=== PATIENT | male | born 1965 | race Caucasian/White ===

== ENCOUNTER 2016-10-02 09:45 | Emergency (ER) | payer OTHER ==
[2016-10-02 09:48] VITALS: BP 135/94; PULSE 82; RESP 17; TEMP 98.1; O2SAT 98
[2016-10-02] MEDS ORDERED: SODIUM CHLOR 0.9% 1000 ML INJ 1,000 ML IV SCH (09:55)
[2016-10-02] MEDS ORDERED: ONDANSETRON HCL 4 MG/2 ML VIAL IVP ONE (10:00)
[2016-10-02] MEDS ORDERED: MORPHINE SULFATE 4 MG/ML INJ IV PUSH ONE (10:00)
[2016-10-02] MEDS ORDERED: metroNIDAZOLE 500 MG INJ 100 ML IV ONE (10:00)
[2016-10-02] MEDS ORDERED: CIPROFLOXACIN 400 MG PREMIX 200 ML IV ONE (10:00)
--- NOTE | 2016-10-02 10:04 | PD ---
HPI . Abdominal pain Chief Complaint: Abdominal Pain Time Seen by Provider: 09:55 Travel History International Travel<30 days: No Contact w/Intl Traveler<30days: No History of Present Illness HPI Patient presents with abdominal pain which started 3 days ago. It became much worse last night. He states that he had subjective fevers and chills last night. He denies any associated nausea, vomiting or diarrhea. He denies any associated urinary tract symptoms such as dysuria, frequency or urgency. He reports a good appetite. He has not noted any exacerbating or relieving factors. He reports a past medical history of a ruptured diverticulum. He had his state that it was treated conservatively with IV antibiotics and improved. He did not require surgery. FORMERLY [facility] Past Medical History Narrative Medical Most of his past medical history was obtained from his . He has a history of gout, hyperlipidemia, hypertension and diverticulitis. She also states that he has colonic polyps which are followed closely by colonoscopy every 3 years. Social History Tobacco Use: No Allergies-Medications (Allergen,Severity, Reaction): Coded Allergies: No Known Allergies (Unverified , 10/02/16) Reported Meds & Prescriptions Reported Meds & Active Scripts Active Reported Crestor (Rosuvastatin Calcium) 5 Mg Tab 5 Mg PO DAILY Lovastatin 40 Mg Tab 40 Mg PO DAILY Allopurinol 300 Mg Tab 300 Mg PO DAILY Review of Systems Except as stated in HPI: all other systems reviewed are Neg General / Constitutional: Positive: Fever, Chills Gastrointestinal: Positive: Abdominal Pain, No: Nausea, Vomiting, Diarrhea, Loss of Appetite Genitourinary: No: Urgency, Frequency, Dysuria Physical Exam Narrative GENERAL: Healthy-appearing man in no acute distress. SKIN: Warm and dry. HEAD: Atraumatic. Normocephalic. EYES: Pupils equal and round. Extraocular movements are intact. ENT: No nasal bleeding or discharge. Mucous membranes pink and moist. NECK: Trachea midline. Neck is supple. CARDIOVASCULAR: Regular rate and rhythm. Heart sounds are normal. RESPIRATORY: No accessory muscle use. Lungs are clear with full air movement throughout. GASTROINTESTINAL: Abdomen soft. Left sided tenderness. Nondistended. MUSCULOSKELETAL: No obvious deformities. No edema. NEUROLOGICAL: Awake and alert. No obvious cranial nerve deficits. Motor grossly within normal limits. Normal speech. PSYCHIATRIC: Appropriate mood and affect; insight and judgment normal. Data Data Last Documented VS Vital Signs Date Time Temp Pulse Resp B/P Pulse Ox O2 Delivery O2 Flow Rate FiO2 10/02/16 12:45 74 16 113/82 98 Room Air 10/02/16 09:48 98.1 Orders Complete Blood Count With Diff (10/02/16 09:55) Comprehensive Metabolic Panel (10/02/16 09:55) Lipase (10/02/16 09:55) Lactic Acid (10/02/16 09:55) Urinalysis - C+S If Indicated (10/02/16 09:55) Ct Abd/Pel W Iv Contrast(Rout) (10/02/16 09:55) Iv Access Insert/Monitor (10/02/16 09:55) Ecg Monitoring (10/02/16 09:55) Oximetry (10/02/16 09:55) Morphine Inj (Morphine Inj) (10/02/16 10:00) Ondansetron Inj (Zofran Inj) (10/02/16 10:00) Ciprofloxacin 400 Mg Premix (Cipro 400 M (10/02/16 10:00) Metronidazole 500 Mg Inj (Flagyl 500 Mg (10/02/16 10:00) Sodium Chlor 0.9% 1000 Ml Inj (Ns 1000 M (10/02/16 09:55) Sodium Chloride 0.9% Flush (Ns Flush) (10/02/16 10:00) Electrocardiogram (10/02/16 09:55) Iohexol 350 Inj (Omnipaque 350 Inj) (10/02/16 11:48) Morphine Inj (Morphine Inj) (10/02/16 12:45) Labs Laboratory Tests Test 10/02/16 10/02/16 10:17 10:37 White Blood Count 14.5 TH/MM3 Red Blood Count 4.65 MIL/MM3 Hemoglobin 14.8 GM/DL Hematocrit 42.8 % Mean Corpuscular Volume 92.2 FL Mean Corpuscular Hemoglobin 31.8 PG Mean Corpuscular Hemoglobin 34.5 % Concent Red Cell Distribution Width 13.6 % Platelet Count 175 TH/MM3 Mean Platelet Volume 7.7 FL Neutrophils (%) (Auto) 85.5 % Lymphocytes (%) (Auto) 5.1 % Monocytes (%) (Auto) 9.2 % Eosinophils (%) (Auto) 0.0 % Basophils (%) (Auto) 0.2 % Neutrophils # (Auto) 12.4 TH/MM3 Lymphocytes # (Auto) 0.7 TH/MM3 Monocytes # (Auto) 1.3 TH/MM3 Eosinophils # (Auto) 0.0 TH/MM3 Basophils # (Auto) 0.0 TH/MM3 CBC Comment DIFF FINAL Differential Comment Sodium Level 134 MEQ/L Potassium Level 4.2 MEQ/L Chloride Level 99 MEQ/L Carbon Dioxide Level 24.6 MEQ/L Anion Gap 10 MEQ/L Blood Urea Nitrogen 9 MG/DL Creatinine 1.41 MG/DL Estimat Glomerular Filtration 53 ML/MIN Rate Random Glucose 143 MG/DL Lactic Acid Level 1.9 mmol/L Calcium Level 9.3 MG/DL Total Bilirubin 1.3 MG/DL Aspartate Amino Transf 23 U/L (AST/SGOT) Alanine Aminotransferase 43 U/L (ALT/SGPT) Alkaline Phosphatase 43 U/L Total Protein 8.0 GM/DL Albumin 4.1 GM/DL Lipase 140 U/L Urine Color YELLOW Urine Turbidity CLEAR Urine pH 5.5 Urine Specific [place] 1.020 Urine Protein TRACE mg/dL Urine Glucose (UA) NEG mg/dL Urine Ketones NEG mg/dL Urine Occult Blood NEG Urine Nitrite NEG Urine Bilirubin NEG Urine Urobilinogen LESS THAN 2.0 MG/DL Urine Leukocyte Esterase NEG Urine RBC 1 /hpf Urine WBC 2 /hpf Urine Squamous Epithelial <1 /hpf Cells Urine Mucus FEW /lpf Microscopic Urinalysis Comment CULT NOT INDICATED MDM Medical Decision Making Medical Screen Exam Complete: Yes Emergency Medical Condition: Yes Medical Record Reviewed: Yes (he has no old records in our system for review.) Interpretation(s) EKG shows a sinus rhythm with a ventricular rate of 111. No ST segment elevation or depression. Differential Diagnosis Differential diagnosis of abdominal pain includes but is not limited to gastritis, pancreatitis, hepatitis, gastroenteritis, gallbladder disease, constipation, urinary retention, UTI, peptic ulcer disease, diverticulitis or appendicitis Narrative Course Patient presents for evaluation of left-sided abdominal pain. He gives a history of previous diverticulitis with rupture. CBC & BMP Diagram 10/02/16 10:17 LFTs are normal. UA is negative. Last Impressions Abdomen/Pelvis CT 10/02/16 0955 Signed Impressions: Service Date/Time: Sunday, October 02, 2016 11:43 - CONCLUSION: 1. Abnormally thickened and inflamed proximal sigmoid colon with pericolonic inflammatory change in adjacent free fluid. Imaging findings are characteristic of acute diverticulitis. Although no definite mass is seen it would be reasonable to perform followup imaging or endoscopy to ensure no underlying mass is present once the clinical symptoms resolve. 2. Nonacute findings include cholelithiasis , mild splenomegaly, and mild atherosclerotic disease. Orlin Schmidt MD The patient reports that he would much prefer to be treated as an outpatient if possible. Since he does not have a perforation or abscess, I think that this is reasonable. Diagnosis Primary Impression: Diverticulitis large intestine Qualified Code: K57.32 - Diverticulitis of large intestine without perforation or abscess without bleeding Referrals: Margaret Lawrence MD 1 week Patient Instructions: Diverticulitis (DC), General Instructions Additional Instructions: Take a stool softener such as Colace along with the pain medication to prevent constipation Med/Other Pt SpecificInfo: Prescription(s) given Scripts Oxycodone-Acetaminophen (Percocet)5-325 mg Tab1 Tab PO Q4H PRN (PAIN) #12 TAB Ref 0 Prov:Lyndsay Leos MD 10/02/16 Metronidazole (Flagyl)500 Mg [id number] Mg PO BID 7 Days Ref 0 Prov:Lyndsay Leos MD 10/02/16 Ciprofloxacin (Cipro)500 Mg [id number] Mg PO BID 10 Days Ref 0 Prov:Lyndsay Leos MD 10/02/16 Disposition: 01 DISCHARGE HOME Condition: Stable Lyndsay Leos MD Oct 02, 2016 10:04
[2016-10-02] MEDS ORDERED: LOVA40TA PO (10:14)
[2016-10-02] MEDS ORDERED: ROSU5 PO (10:14)
[2016-10-02] MEDS ORDERED: FENO160T PO (10:14)
[2016-10-02] MEDS ORDERED: ALLO300T2 PO (10:14)
[2016-10-02 10:41] LABS: AUTOMATED NEUTROPHIL # 12.4 TH/MM3 (1.8-7.7); BASOPHIL % 0.2 % (0.0-2.0); HEMATOCRIT 42.8 % (39.0-51.0); HEMO FLAGS DIFF FINAL; LYMPH % 5.1 % (9.0-44.0); LYMPHOCYTE # 0.7 TH/MM3 (1.0-4.8); MEAN CELL VOLUME 92.2 FL (80.0-100.0); MEAN CORPUSCULAR HEMOGLOBIN 31.8 PG (27.0-34.0); MEAN CORPUSCULAR HGB CONC 34.5 % (32.0-36.0); MONO % 9.2 % (0.0-8.0); NEUT % 85.5 % (16.0-70.0); PLATELET COUNT 175 TH/MM3 (150-450); RED BLOOD COUNT 4.65 MIL/MM3 (4.50-5.90); RED CELL DISTRIBUTION WIDTH 13.6 % (11.6-17.2); WHITE BLOOD COUNT 14.5 TH/MM3 (4.0-11.0)
[2016-10-02] MEDS: SODIUM CHLORIDE 0.9% FLUSH 5 ML FLUSH IVF PRN ×2 (10:53→12:43)
[2016-10-02 11:03] LABS: ANION GAP 10 MEQ/L (5-15); AST (GOT) 23 U/L (15-37); BICARBONATE 24.6 MEQ/L (21.0-32.0); BLOOD UREA NITROGEN 9 MG/DL (7-18); CHLORIDE 99 MEQ/L (98-107); GLOMERULAR FILTRATION RATE 53 ML/MIN (>89); POTASSIUM 4.2 MEQ/L (3.5-5.1); SODIUM (NA) 134 MEQ/L (136-145)
[2016-10-02 11:04] LABS: BLOOD, URINE NEG (NEG); GLUCOSE,URINE NEG (NEG); KETONE, URINE NEG (NEG); MUCUS URINE FEW /lpf (OCC); NITRITE,URINE NEG (NEG); PH, URINE 5.5 (5.0-8.5); SQUAMOUS EPITHELIAL CELL URINE <1 /hpf (0-5); URINE COLOR YELLOW (YELLW/STRAW)
[2016-10-02 11:05] LABS: COMMENT (UR) CULT NOT INDICATED; CULTURE IF INDICATED CULT NOT INDICATED
[2016-10-02 11:06] LABS: ALKALINE PHOSPHATASE 43 U/L (45-117); ALT (GPT) 43 U/L (12-78); TOTAL BILIRUBIN ADULT 1.3 MG/DL (0.2-1.0)
[2016-10-02] MEDS ORDERED: IOHEXOL 350 MG/ML 10 ML VIAL (for RAD DIAG) IV ONE (11:48)
--- NOTE | 2016-10-02 12:15 | RADRPT ---
EXAM DATE/TIME: 10/02/2016 11:43 [facility] COMPARISON: No previous studies available for comparison. INDICATIONS : Abdominal pain for three days. IV CONTRAST: 98 cc Omnipaque 350 (iohexol) IV ORAL CONTRAST: No oral contrast ingested. RADIATION DOSE: 14.50 CTDIvol (mGy) MEDICAL HISTORY : Diverticulitis. Hypertension. Gout, colon polyps. SURGICAL HISTORY : Bilateral total hip replacements. ENCOUNTER: Initial ACUITY: 3 days PAIN SCALE: 6/10 LOCATION: diffuse abdomen. TECHNIQUE: Volumetric scanning of the abdomen and pelvis was performed. Using automated exposure control and ad justment of the mA and/or kV according to patient size, radiation dose was kept as low as reasonably achievable to obtain optimal diagnostic quality images. FINDINGS: LOWER LUNGS: The visualized lower lungs are clear. LIVER: Liver density may indicate steatosis. No lesion is seen. There is no dilation of the biliary tree. T here are stones in the gallbladder. No gallbladder wall thickening is present. SPLEEN: Mildly enlarged measuring 15 cm in length. No lesion is seen. PANCREAS: Within normal limits. KIDNEYS: Normal in size and shape. There is no mass, stone or hydronephrosis. ADRENAL GLANDS: Within normal limits. VASCULAR: There is no aortic aneurysm. BOWEL/MESENTERY: The stomach and small bowel demonstrate no abnormality. There is sigmoid diverticulosis with severe i nflammatory change surrounding the proximal sigmoid colon. There is a short segment of wall thickenin g measuring approximately 4.8 cm. No significant free air is present and there is no abscess. There i s trace free fluid. ABDOMINAL WALL: Within normal limits. RETROPERITONEUM: There is no lymphadenopathy. BLADDER: No definite abnormality is seen. REPRODUCTIVE: Not adequately visualized due to artifact. INGUINAL: There is no lymphadenopathy or hernia. MUSCULOSKELETAL: Bilateral hip hardware is present related to prior arthroplasty. This results in significant artifact in the pelvis. There are degenerative changes of the lumbar spine. CONCLUSION: 1. Abnormally thickened and inflamed proximal sigmoid colon with pericolonic inflammatory change in a djacent free fluid. Imaging findings are characteristic of acute diverticulitis. Although no definite mass is seen it would be reasonable to perform followup imaging or endoscopy to ensure no underlying mass is present once the clinical symptoms resolve. 2. Nonacute findings include cholelithiasis, mild splenomegaly, and mild atherosclerotic disease. Orlin Schmidt MD on October 02, 2016 at 12:08 Board Certified Radiologist. This report was verified electronically.
[2016-10-02 12:45] VITALS: BP 113/82; PULSE 74; RESP 16; O2SAT 98
[2016-10-02] MEDS ORDERED: MORPHINE SULFATE 8 MG/ML INJ IV PUSH ONE (12:45)
[2016-10-02] MEDS ORDERED: PERC5TAB12 PO (12:56)
[2016-10-02] MEDS ORDERED: CIPR-9 PO (12:56)
[2016-10-02] MEDS ORDERED: METR-1 PO (12:56)
[2016-10-02 13:15] VITALS: BP 112/68; PULSE 72; RESP 16; O2SAT 98
--- NOTE | 2016-10-02 18:19 | EKG ---
Date Performed: 10/02/2016 Time Performed: 10:16:36 PTAGE: 51 years EKG: SINUS TACHYCARDIA ABNORMAL RHYTHM ECG NO PREVIOUS TRACING DOCTOR: Jelani Cardoso Interpretating Date/Time 10/02/2016 18:13:55
== END 2016-10-02 13:30 | disposition home or self-care (01) ==
LOC: NEPA 09:45
DX: K57.32 Diverticulitis of large intestine without perforation or abscess without bleeding (principal); M10.9 Gout, unspecified; I10 Essential (primary) hypertension; E78.5 Hyperlipidemia, unspecified; Z86.010 Personal history of colon polyps
CPT/HCPCS: 74177; 80053; 81001; 83605; 83690; 85025; 93005; 96365; 96366; 96368; 96375; 96376; 99284; J0744; J2270; J2405; J7030; Q9967